=== PATIENT | male | born 1955 | race Caucasian/White ===

== ENCOUNTER → 2019-12-14 | Outpatient (CLI) | payer BC ==
--- NOTE | 2019-12-14 22:18 | MR ---
EXAMINATION TYPE: MR lumbar spine wo con DATE OF EXAM: 12/14/2019 COMPARISON: None HISTORY: Bilateral hip/knee pain x 2-3 years, lower back stiffness CONTRAST: 0 mL intravenous Gadavist. TECHNIQUE: Multiplanar, multisequence images of the lumbar spine were acquired. FINDINGS: Hemangioma is present within the L2 vertebral body. Disc heights are preserved. Disc desic cation is present throughout the lumbar spine. L5-S1: L disc bulge is present with anterior thecal sac flattening. Facet hypertrophy is present. No spinal canal stenosis or neural foraminal stenosis is present. No spinal canal stenosis. No foramin al stenosis. L4-L5: Mild disc bulge has anterior thecal sac flattening. Facet hypertrophy and ligamentum flavum la xity has moderate posterior lateral thecal sac compression. Mild lateral canal narrowing may be prese nt. L3-L4: No significant disc bulge or disc herniation. No spinal canal stenosis. No foraminal stenosi s. Mild facet hypertrophy is present with minimal posterior lateral thecal sac compression. L2-L3: No significant disc bulge or disc herniation. No spinal canal stenosis. No foraminal stenosi s. L1-L2: No significant disc bulge or disc herniation. No spinal canal stenosis. No foraminal stenosi s. T12-L1: No significant disc bulge or disc herniation. No spinal canal stenosis. No foraminal stenos is. IMPRESSION: 1. Minimal disc bulging L4-5 L5-S1 with anterior thecal sac flattening. 2. Facet hypertrophy with ligamentum flavum laxity L4-5 may has some mild lateral canal narrowing. No AP spinal canal stenosis is present.
== END | disposition home or self-care (01) ==
LOC: RADMRIMAIN 21:32
PROVIDERS: ATTEND Orthopaedic Surgery
DX: M51.26 Other intervertebral disc displacement, lumbar region (principal); M51.27 Other intervertebral disc displacement, lumbosacral region
CPT/HCPCS: 72148